=== PATIENT | male | born 1995 | race Caucasian/White ===

== ENCOUNTER 2018-05-27 22:33 | Emergency (ER) | payer SELFPAY ==
[~2018-05-27] VITALS: Ht 182.9 cm; Wt 75.0 kg
[2018-05-27 23:46] VITALS: BP 123/67
== END 2018-05-27 23:48 ==
LOC: ER 22:34
DX: S30.811A Abrasion of abdominal wall, initial encounter (principal); S40.812A Abrasion of left upper arm, initial encounter; R07.89 Other chest pain; Z72.89 Other problems related to lifestyle; Z88.8 Allergy status to other drugs, medicaments and biological substances; V43.02XA Car driver injured in collision with other type car in nontraffic accident, initial encounter; Y93.89 Activity, other specified; Y92.89 Other specified places as the place of occurrence of the external cause; Y99.8 Other external cause status
CPT/HCPCS: 71045; 99284